=== PATIENT | male | born 1965 | race Caucasian/White ===

== ENCOUNTER → 2024-04-14 12:44 | Outpatient (CLI) | payer OTHER, SELFPAY ==
[2024-04-14 21:23] LABS: Influenza A - CEPHEID Flu A NEGATIVE (NEGATIVE); Influenza B - CEPHEID Flu B NEGATIVE (NEGATIVE); Respiratory Syncytial Virus Negative (Negative)
[2024-04-14 21:24] LABS: COVID-19 CEPHEID 4-PLEX PCR Negative (Negative)
== END ==
PROVIDERS: Family Provider Family Medicine; PCP Physician Assistant Medical; Visit Provider Physician Assistant Medical
DX: J06.9 Acute upper respiratory infection, unspecified (principal)
CPT/HCPCS: 0241U